=== PATIENT | female | born 1965 | race Caucasian/White ===

== ENCOUNTER 2021-12-15 21:21 | Emergency (ER) | payer OTHER ==
[~2021-12-15 21:21] MED LIST: ISOVUE-370 76%-LOCM 1 ML ONE
[2021-12-15] MEDS ORDERED: Morphine 4 MG/ML VIAL ONE (22:06)
[2021-12-15] MEDS ORDERED: Ketorolac Tromethamine 30 MG/ML VIAL ONE (22:07)
[2021-12-15] MEDS ORDERED: Ondansetron PF 4 MG/2 ML Vial ONE (22:07)
[2021-12-15 23:09] LABS: #Lymphocytes 0.9 thou/uL (1.20-3.40); #Monocytes 0.5 thou/uL (0.11-0.59); #Neutrophils 8.1 thou/uL (1.40-6.50); %Basophils 0.1 % (0.0-1.0); %Eosinophils 0.2 % (0.0-10.0); %Lymphocytes 9.2 % (21.0-51.0); %Neutrophils 85.6 % (42.0-75.0); Hemoglobin 13.7 g/dL (12.0-16.0); Mean Corpuscular HGB CONC 33.8 g/dL (32.0-36.0); Mean Corpuscular Hemoglobin 31.6 pg (27.0-31.0); Mean Corpuscular Volume 93.7 fL (78.0-98.0); Mean Platelet Volume 7.1 fL (7.4-10.4); Platelet Count 333 thou/uL (130-400); Red Blood Cell (RBC) Count 4.33 mill/uL (4.20-5.40); White Blood Cell (WBC) Count 9.5 thou/uL (4.8-10.8)
[2021-12-15 23:29] LABS: ALT (SGPT) 36 U/L (8-55); AST (SGOT) 36 U/L (5-34); Albumin 4.3 g/dL (3.5-5.0); Alkaline Phosphatase 63 U/L (40-110); Anion Gap 15 mmol/L (10-20); BUN (Urea Nitrogen) 8 mg/dL (9.8-20.1); Bilirubin, Total 0.6 mg/dL (0.2-1.2); Calc. Creatinine Clearance 0 mL/min (70-130); Calcium 9.9 mg/dL (7.8-10.44); Carbon Dioxide 23 mmol/L (22-29); Chloride 101 mmol/L (98-107); Globulin 3.8 g/dL (2.4-3.5); Glucose 113 mg/dL (70-105); Lipase 15 U/L (8-78); Potassium 4.2 mmol/L (3.5-5.1); Protein, Total 8.1 g/dL (6.0-8.3); Sodium 135 mmol/L (136-145)
[2021-12-16] MEDS ORDERED: Morphine 4 MG/ML VIAL ONE (00:22)
[2021-12-16] MEDS ORDERED: Famotidine/PF 20 mg/2ml Vial ONE (00:38)
== END 2021-12-16 01:30 | disposition home or self-care (01) ==
LOC: ERS 21:21
DX: A08.4 Viral intestinal infection, unspecified (principal); E78.5 Hyperlipidemia, unspecified; M06.9 Rheumatoid arthritis, unspecified; M79.7 Fibromyalgia; Z79.899 Other long term (current) drug therapy
CPT/HCPCS: 74177; 76705; 80053; 83690; 84484; 85025; 93005; 96361; 96374; 96375; 96376; J1885; J2270; J2405; J7643; Q9966; S0028